=== PATIENT | male | born 1970 | race Two or more races ===

== ENCOUNTER 2025-05-26 08:01 | Outpatient (CLI) | payer BC ==
[2025-05-26 09:11] LABS: Hematocrit 42.8 % (41.0-53.0); Hemoglobin 13.9 g/dL (13.5-17.5); Mean Corpuscular Hemoglobin 22.9 pg (28.0-32.0); Mean Corpuscular Volume 70.3 fL (80.0-100.0); Nucleated Red Blood Cells % 0.1 %
[2025-05-26 09:13] LABS: Urine Protein, UAD Negative (Negative)
[2025-05-26 09:31] LABS: Alkaline Phosphatase 47 U/L (46-116); Anion Gap 8 (5-15); BUN/Creatinine Ratio 14.0 (10.0-20.0); Blood Urea Nitrogen 12 mg/dL (9-23); Calcium 10.1 mg/dL (8.7-10.4); Carbon Dioxide 29 mmol/L (20-31); Chloride 105 mmol/L (98-107); Cholesterol 178 mg/dL (< 200); Glucose 84 mg/dL (74-106); Potassium 4.1 mmol/L (3.5-5.1); Sodium 142 mmol/L (136-145); Total Protein 7.3 g/dL (5.7-8.2); Triglycerides 75 mg/dL (< 150)
[2025-05-26 09:32] LABS: Albumin 5.1 g/dL (3.2-4.8); Amylase 129 U/L (30-118); Bilirubin, Total 0.7 mg/dL (0.2-1.0); HDL Cholesterol 74 mg/dL (40-59)
[2025-05-26 09:48] LABS: Alanine Aminotransferase 23 U/L (7-40)
[2025-05-26 10:02] LABS: Hepatitis B Surface Antigen Negative (Negative)
[2025-05-26 10:08] LABS: Lipase 31 U/L (12-53)
[2025-05-26 10:31] LABS: Hepatitis C Antibody Negative (Negative)
[2025-05-27 14:07] LABS: Chlamydia Trachomatis, NAA Negative (Negative); Neisseria gonorrhoeae, NAA Negative (Negative)
== END 2025-05-26 17:00 | disposition home or self-care (01) ==
LOC: LAB 08:01
PROVIDERS: ATTEND Internal Medicine
DX: R10.9 Unspecified abdominal pain (principal); Z12.11 Encounter for screening for malignant neoplasm of colon; Z12.5 Encounter for screening for malignant neoplasm of prostate
CPT/HCPCS: 36415; 80053; 80061; 80074; 81001; 82150; 83036; 83690; 84153; 84443; 85025; 86703; 86780